=== PATIENT | female | born 1975 | race American Indian/Alaskan Native ===

== ENCOUNTER 2018-02-26 11:04 | Emergency (ER) | payer OTHER ==
[2018-02-26 11:54] VITALS: BP 111/90
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
--- NOTE | 2018-02-26 15:37 | XRay Report ---
CERVICAL SPINE, 3 views: History: Pain. AP and lateral views of the cervical spine were obtained. Moderate degenerative disc disease is noted at C4-5, C5-6 and C6-7. Facet joints are unremarkable. There is no evidence of fracture or subluxation. There is loss of the normal cervical lordotic curve suggestive of muscle spasm. The prevertebral soft tissues are within normal limits. IMPRESSION: Cervical spondylosis. Loss of cervical lordosis suggesting muscle spasm vs. variation in patient positioning. Clinical correlation is advised. Otherwise negative cervical spine.
[2018-02-26] MEDS ORDERED: ULTRAM PO ONE (16:17)
== END 2018-02-26 17:00 | disposition home or self-care (01) ==
LOC: ED 11:04
DX: S16.1XXA Strain of muscle, fascia and tendon at neck level, initial encounter (principal); Z79.899 Other long term (current) drug therapy; V49.09XA Driver injured in collision with other motor vehicles in nontraffic accident, initial encounter; Y93.89 Activity, other specified; Y99.8 Other external cause status; Y92.488 Other paved roadways as the place of occurrence of the external cause
CPT/HCPCS: 72040